=== PATIENT | female | born 1995 | race African-American/Black ===

== ENCOUNTER 2019-03-14 22:09 | Emergency (ER) | payer SELFPAY ==
[~2019-03-14] VITALS: Ht 165.1 cm; Wt 88.5 kg
--- NOTE | 2019-03-14 23:06 | NUR ---
TECH AT BEDSIDE FOR EKG
[2019-03-14 23:27] VITALS: BP 133/67
== END 2019-03-14 23:43 | disposition home or self-care (01) ==
LOC: ER 22:14
DX: R07.89 Other chest pain (principal); Z98.890 Other specified postprocedural states